=== PATIENT | male | born 1985 | race Caucasian/White ===

== ENCOUNTER 2020-07-09 11:26 | Emergency (ER) | payer OTHER ==
[~2020-07-09] VITALS: Ht 170.2 cm; Wt 70.3 kg
[2020-07-09 12:07] LABS: CREATININE 0.9 mg/dL (0.6-1.3); POTASSIUM 4.1 mmol/L (3.5-5.1)
[2020-07-09 12:11] LABS: ALBUMIN 3.9 g/dL (3.4-5.0); TOTAL BILIRUBIN 0.4 mg/dL (<0.1-1.0); TOTAL PROTEIN 8.2 g/dL (6.4-8.2)
[2020-07-09 12:21] LABS: ABSOLUTE BASOPHILS 0.1 thou/uL (0.0-0.2); ABSOLUTE EOSINOPHILS 0.8 thou/uL (0.0-0.7); ABSOLUTE LYMPHOCYTES 1.6 thou/uL (0.8-5.3); ABSOLUTE MONOCYTES 0.7 thou/uL (0.0-1.2); ABSOLUTE NEUTROPHILS 7.3 thou/uL (1.6-8.1); BASOPHILS 0.5 %; EOSINOPHILS 7.6 %; HEMATOCRIT 45.6 % (42.0-52.0); HEMOGLOBIN 15.4 gm/dL (14.0-18.0); LYMPHOCYTES 15.5 %; MCH 32.4 pg (26.0-34.0); MCHC 33.8 g/dL (28.0-37.0); MCV 95.9 fL (80.0-100.0); MONOCYTES 6.6 %; NUCLEATED RBCS 0 /100WBC; PLATELET COUNT* 343 thou/uL (150-400); POLYS 69.8 %; RBC 4.76 mil/uL (4.50-6.00); RDW-CV 13.3 % (10.5-14.5); WBC 10.5 thou/uL (4.0-11.0)
[2020-07-09] MEDS ORDERED: PROAIR HFA8.5 GM INH (13:34)
[2020-07-09] MEDS ORDERED: RAYOS5 MG PO (13:34)
[2020-07-09] MEDS ORDERED: DOXYCYCLINE 10100 MG PO (13:35)
[2020-07-09 13:45] VITALS: BP 122/76
--- NOTE | 2020-07-10 14:43 | EKG ---
[place] [address] ELECTROCARDIOGRAM REPORT Name: MUNA MOTA II Room: [facility]#: [id number] Admission: 07/09/20 Attend Phys: Discharge: 07/09/20 Date of : 87 Date of Service: 07/09/20 1129 Report #: [id number] THIS REPORT FOR: //name// [facility] ED Test Date: 2020-07-09 Test Time: 11:29:23 Pat Name: MUNA MOTA Department: Room: Gender: Assistant City Attorney: : 1985 Requested By: Vahe Chand Order Number: [id number] MD: Kulwinder Barnes Measurements Intervals [place] Rate: 57 P: 42 MA: 131 QRS: 28 QRSD: 102 T: 34 QT: 376 QTc: 366 Interpretive Statements Sinus arrhythmia ST elev, probable normal early repol pattern No previous ECG available for comparison Electronically Signed On 07-10-2020 14:43:01 CDT by Kulwinder Barnes [email or web address] <ELECTRONICALLY SIGNED> By: Kulwinder Barnes MD, [facility] 07/10/20 1443 1129 112 Kulwinder Barnes MD, FAC /EPI
== END 2020-07-09 13:45 | disposition home or self-care (01) ==
LOC: M.ERS 11:26
PROVIDERS: Emergency Medicine
DX: J40 Bronchitis, not specified as acute or chronic (principal); F17.210 Nicotine dependence, cigarettes, uncomplicated